=== PATIENT | female | born 1955 | race Caucasian/White ===

== ENCOUNTER → 2021-11-27 09:04 | Outpatient (REF) | payer OTHER, SELFPAY | LOC: ANHLAB 09:04 | PROVIDERS: PCP Family Medicine; Visit Provider Nurse Practitioner | DX: D22.5 Melanocytic nevi of trunk (principal) | CPT/HCPCS: 88305 ==

== ENCOUNTER 2022-02-26 11:44 | Outpatient (CLI) | payer OTHER, SELFPAY ==
--- NOTE | ~2022-02-26 | XR_ITS ---
XR abdomen/kub 1V DATE: 02/26/2022 12:05 INDICATION: Right renal calculus TECHNIQUE: AP projection, 2 views COMPARISON: 12/14/2008 KUB FINDINGS: 3.8 x 9.6 mm calcified calculus overlying the right kidney lower pole. No other apparent urinary tract calcification is noted. No visceromegaly is evident. The psoas shadows are intact. There is no evidence of bowel obstruction. Osteitis pubis. Bilateral osteitis condensans ilii. There is mild levoscoliosis moderate degenerative disc disease of the lumbar spine. IMPRESSION: Right nephrolithiasis Reviewed, dictated and finalized at [facility]. Reviewed, dictated and finalized at location [facility]. IMPRESSION: Right nephrolithiasis
== END 2022-02-26 11:45 | disposition home or self-care (01) ==
PROVIDERS: PCP Family Medicine; Visit Provider Urology
DX: N20.0 Calculus of kidney (principal); M41.9 Scoliosis, unspecified; M86.8X8 Other osteomyelitis, other site; M47.816 Spondylosis without myelopathy or radiculopathy, lumbar region
CPT/HCPCS: 74018

== ENCOUNTER 2022-03-25 12:59 | Outpatient (CLI) | payer OTHER, SELFPAY ==
[2022-03-25 14:10] LABS: Partial Thromboplastin Time 26.6 SECONDS (22.3-36.8); Prothrombin Time 12.8 Seconds (11.1-14.7)
== END 2022-03-25 13:00 | disposition home or self-care (01) ==
LOC: ANHSURGERY 13:03
PROVIDERS: PCP Family Medicine; Visit Provider Urology
DX: Z01.812 Encounter for preprocedural laboratory examination (principal); N20.0 Calculus of kidney
CPT/HCPCS: 36415; 85610; 85730; 87086

== ENCOUNTER 2022-04-03 00:29 | Day surgery (SDC) | payer OTHER, SELFPAY ==
[2022-03-25 09:22] VITALS: BMI 25.1
--- NOTE | 2022-03-25 09:31 | PC.NURSE ---
Report to the Outpatient Waiting Room, entrance under the green pavilion located off [facility], at time _0730_ on date _04/03/22_. OR Time: _0930_. - You and your visitor will be asked a series of questions to screen for COVID 19 for your protection. - Only one visitor is allowed at this time. - The patient visitor is requested to leave or wait in car when not with patient. - A mask is required within the hospital. Patients may have clear liquids (water, carbonated beverages, clear teas, apple juice) until 3 hours prior to surgery (0630 AM) with a maximum of 20 ounces. - No food from midnight until time of surgery Take the following medications with a SIP of water the morning of surgery: __EYE DROPS__ Medications to discontinue per ANESTHESIA - MULTIVITAMIN, Date to take last dose 03/30/22__ Please no make-up, nail tuvaluan, hairspray, perfume, deodorant, or body powder the day of surgery. No jewelry (including any body piercings) or valuables the day of surgery, leave them at home. Please take a shower or bath the night before, or the morning of, surgery with an antibacterial soap. Wear comfortable, loose fitting clothing. Children are encouraged to wear pajamas. - Jewelry must be removed prior to entering the operating room. Rings and piercings that are not removed may be cut off. - The hospital will not accept responsibility for valuables. - Please leave all valuables, including medications, at home the day of surgery. If you are going home after surgery, a licensed drivers license examiner must drive you home. - NO public transportation without another adult. - We recommend that an adult stay with you for 24 hours following discharge. - We also recommend that you do not drive, make important decision, drink alcoholic beverages, or take any drugs that were not prescribed by your health care provider for at least 24 hours after your discharge time. Follow any additional instructions given to you from your surgeon. If you or anyone in your household have experienced Covid symptoms in the past week, please notify your surgeon or the nurse liaison at the phone number below for possible testing. Telephone instructions given to ___PT and asked if any additional questions and then verbalized understanding. Patient advised to call surgeon office or pre surgery nurse liaison [phone] if any additional questions.
--- NOTE | 2022-04-02 15:22 | WPDANESEPPF ---
Anes - Initial Pre Proc Eval Procedure: Operation Date: 04/03/22 09:30 Proposed Procedures p Right Renal Extracorporeal Shock Wave Lithotripsy - Quan Lockett MD Date/Time: 04/02/22 15:22 Surgeon: Quan Lockett MD Pre Op Diagnosis: right renal stone Patient Data Age: 66 Gender: F Height: 1.7 m Weight: 72.72 kg Allergies Allergy/AdvReac Type Severity Reaction Status Date / Time Sulfa (Sulfonamide Allergy Unknown NAUSEA/VOMI Verified 01/12/22 15:14 Antibiotics) TING epinephrine Allergy HYPERVENTILATE Verified 03/25/22 09:20 & PASSES OUT Home Medications Medication Instructions Recorded Confirmed Type multivitamin 1 tablet PO DAILY 06/18/20 03/25/22 History brimonidine 0.2 % eye drops 1 drp QAM 03/25/22 03/25/22 History latanoprost 0.005 % eye drops 1 drp HS 03/25/22 03/25/22 History Patient hx anesthesia problems: none Family hx anesthesia problems: none Results Review: All pre-operative results and documents have been reviewed as part of the pre-operative evaluation. [facility] Past Medical History Medical History (Updated 04/02/22 @ 15:24 by Reed Powers MD) MVP (mitral valve prolapse) Seborrheic keratosis Solar lentigo Social History Social History Smoking status: Never smoker Second hand tobacco smoke exposure: No Alcohol intake: never Substance use: never Substance use type: does not use Living arrangements: with family Spiritual care concerns: No Anes - Eval Final PreProcedure Day of Procedure 04/02/22 15:22 Patient weight: overweight Heart: regular rate and rhythm Lungs: clear to auscultation and normal air movement Airway: Mallampati scale class II Neurological: alert and oriented Last oral intake: >/= 8 hours ASA classification: II Emergent: no Anesthetic plan: proceed Anesthesia type and monitoring: general LMA Results Review: All pre-operative results and documents have been reviewed as part of the pre-operative evaluation. Informed Consent: The patient's anesthetic plan and its attendant risks and benefits were discussed with the patient/family/POA. Questions were solicited and answers provided to the satisfaction of the patient/family/POA.
[2022-04-03] VITALS (9 sets, daily range): BP systolic 102–137; BP diastolic 57–77; PULSE 53–80; RESP 12–21; TEMP 36.4–37.2; O2SAT 98–100
--- NOTE | ~2022-04-03 | XR_ITS ---
EXAMINATION: XR abdomen/kub 1V DATE: 04/03/2022 07:30 INDICATION: Right kidney stone. TECHNIQUE: A supine view of the abdomen on 2 radiographs was obtained. COMPARISON: Abdomen radiograph 02/26/2022 FINDINGS: There are no dilated loops of bowel. There are phleboliths in left pelvis. There is a 9 mm stone in right kidney. IMPRESSION: 1. 9 mm stone in right kidney. Reviewed, dictated and finalized at location [facility].
[2022-04-03] MEDS: LACTATED RINGERS 1,000 ML 30 ML IV CONT (07:56)
--- NOTE | 2022-04-03 08:09 | WPDHPUPDATE1 ---
History and Physical Update Update Date/Time: 04/03/22 08:09 History and Physical has been reviewed, including an updated exam of the patient. There are NO changes in the patient's condition. Risks, benefits, and alternatives have been discussed and questions answered. Patient agrees to proceed with procedure. Proceed with right renal lithotripsy
[2022-04-03] MEDS: ceFAZolin 2 GM/D5W 50 ML 2 GM/50 ML BAG IVPB (09:19)
--- NOTE | 2022-04-03 09:51 | W.PM.PROC2 ---
Procedure Note - Detailed Date of Procedure 04/03/22 Pre-op Diagnosis right renal stone Post-op Diagnosis Same Procedure Performed Lithotripsy of right renal calculus 9 mm Surgeon Quan Lockett MD Anesthesia General Description of Procedure Patient is taken to the operative suite correctly identified. Once anesthesia was obtained the stone was localized in both planes. Two thousand five hundred shocks were given the stone. There appeared to be good fragmentation of the stone. Patient was taken recovery stable condition will follow up in 7-10 days with KUB. Estimated Blood Loss 0 Drains No Packing No Pathology None sent Complications No immediate complications Condition Stable Disposition PACU
== END 2022-04-03 11:29 | disposition home or self-care (01) ==
PROVIDERS: PCP Family Medicine; Visit Provider Urology
PROC: (CPT 50590; principal; 2022-04-03 09:30)
DX: N20.0 Calculus of kidney (principal)
CPT/HCPCS: 50590; 36415; 74018; 85610; 85730; 87086; J0690; J1100; J2250; J2405; J2704; J3010; J7120

== ENCOUNTER 2022-04-13 12:22 | Outpatient (CLI) | payer OTHER, SELFPAY ==
--- NOTE | ~2022-04-13 | XR_ITS ---
XR abdomen/kub 1V 04/13/2022 12:34 Indication: Follow-up lithotripsy Procedure: KUB Comparison: 08/13/2008 Findings: There are right renal stones. Bowel gas pattern is nonobstructive. Mild lumbar spondylosis. No acute osseous abnormality. Impression: 1: Right nephrolithiasis. Reviewed, dictated and finalized at location B. Impression: 1: Right nephrolithiasis.
== END 2022-04-13 12:23 | disposition home or self-care (01) ==
PROVIDERS: PCP Family Medicine; Visit Provider Urology
DX: N20.0 Calculus of kidney (principal)
CPT/HCPCS: 74018

== ENCOUNTER 2022-05-06 12:43 | Outpatient (CLI) | payer OTHER, SELFPAY ==
--- NOTE | ~2022-05-06 | XR_ITS ---
EXAMINATION: XR abdomen/kub 1V INDICATION: Calculus of the kidney TECHNIQUE: Supine views of the abdomen were obtained on 2 radiographs. COMPARISON: 04/13/2022 FINDINGS: Previously described stones of the right kidney lower pole are not definitely identified. T he bowel gas pattern is normal. There is sclerosis at the inferior aspect of the sacroiliac joints. O steitis pubis is noted. IMPRESSION: 1. No definite urolithiasis identified. Reviewed, dictated and finalized at location A.
== END 2022-05-06 12:44 | disposition home or self-care (01) ==
LOC: ANHIMG 12:45
PROVIDERS: PCP Family Medicine; Visit Provider Urology
DX: N20.0 Calculus of kidney (principal); M47.898 Other spondylosis, sacral and sacrococcygeal region; M41.9 Scoliosis, unspecified
CPT/HCPCS: 74018

== ENCOUNTER 2022-05-18 14:33 | Outpatient (CLI) | payer OTHER, SELFPAY ==
--- NOTE | ~2022-05-18 | XR_ITS ---
XR abdomen/kub 1V 05/18/2022 14:56 INDICATION: Right nephrolithiasis. TECHNIQUE: KUB COMPARISON: Comparison to multiple prior studies sequentially, with oldest reviewed study dated 02/26. FINDINGS: Bowel gas pattern is normal. There is no evidence of free air, mass, organomegaly, ascites or obstruction. No abnormal calculi are seen. The bones appear intact. Calcifications in the pelvi s are believed to be phleboliths. IMPRESSION: 1: No acute abdominal abnormality identified. Reviewed, dictated and finalized at location A.
== END 2022-05-18 14:34 | disposition home or self-care (01) ==
PROVIDERS: PCP Family Medicine; Visit Provider Urology
DX: N20.0 Calculus of kidney (principal)
CPT/HCPCS: 74018